=== PATIENT | female | born 1970 | race African-American/Black ===

== ENCOUNTER 2020-07-08 02:43 | Emergency (ER) | payer SELFPAY ==
[~2020-07-08] VITALS: Ht 149.9 cm; Wt 79.4 kg
[2020-07-08] MEDS ORDERED: PROMETH-CODEIN 65 ML PO (03:36)
[2020-07-08] MEDS ORDERED: ZITHROMAX250 MG ORAL (03:36)
--- NOTE | 2020-07-08 03:36 | Emergency Room Report ---
History of Present Illness General Chief Complaint: Upper Respiratory Illness Source: Patient Present Illness HPI 50-year-old -Citizen Of [place] female with past medical history of bronchitis presents with cough. Cough is dry. She has gone to urgent care and twice tested negative for Covid. She became concerned because she has posttussive emesis x2 (nonbloody, non bilious) and rib pain. Denies CP, hemoptysis, shortness of breath, fever, chills, abdominal pain, melena, hematochezia, weakness, dysuria, hematuria or any other symptoms The patient's symptoms were gradual onset, severity was moderate, duration since 14 days. Quality: aching Past medical history: bronchitis Past surgical history: hysterectomy x 4 Smoking: Denies Alcohol use: Denies Drug use: Denies Review of systems: CONST: No fevers or chills, No night sweats PULMONARY: ++dry cough, No shortness of breath CARDIAC: No chest pain, No palpitations GI: No vomiting, No diarrhea , No melena_or_BRBPR : No dysuria, No hematuria, No discharge NEURO: No new_focal_weakness_or_numbness, No confusion, No vision changes 14 point Review of Systems is otherwise negative except per HPI Physical Exam: GENERAL: Awake_alert_ nontoxic, no acute distress Spo2 98% on RA -normal EYES: Extraocular muscles are intact. Conjunctivae clear. Lids without swelling ENT: External nose and ear normal_in_appearance. Oropharynx clear. Head_atraumatic, Moist_oral_mucosa NECK: No JVD. No meningismus. No thyromegaly. Supple. Trachea midline RESP: Normal respiratory effort. Symmetric rise. No stridor. Clear_to_auscultation_No_rales_No_wheezes CARDIAC: Regular rate and regular rhytm. No_significant pedal edema. ABDOMEN: Soft. Nondistended. Nontender_No_rebound_or_guarding. MSK: Normal muscle tone, without rigidity. Extremities without asymmetric deformity or swelling. SKIN: Warm and dry. No visible cyanosis or pallor NEUROLOGIC: Alert, oriented x3. Motor_and_sensation_grossly_intact. No truncal ataxia. Gait_normal Psych: Normal mood and affect, normal judgment and insight - COORDINATION OF CARE Case was discussed with: Patient Any labs and imaging that were ordered were interpreted as part of the medical decision making: Medical Decision Making/Plan: DDx: includes COVID-19 / coronavirus infection, URI, bronchitis, viral syndrome, postnasal drip, versus less likely pneumonia, among others. The patient is nontoxic and well-appearing and has no significant shortness of breath or fever . The patient exhibits no evidence of respiratory distress. Chest x-ray revealed no evidence of obvious consolidation of infiltrate. She is refusing repeat Covid swab here today as she has had 2 previous which she describes as "very painful" There is no clinical evidence to suggest bacterial pneumonia at this time. The patient's presentation appears consistent with bronchitis / viral syndrome, with possible subacute bacterial bronchitis No evidence of ENT emergency, airway patent, tolerating oral liquids and solids. No stridor or difficulty breathing. Tonsils within normal limits, no evidence of swelling, exudate or strep pharyngitis. No indication for empiric antibiotic treatment. Sublingual space soft. Will prescribe codeine cough medicine as she is now having forceful cough causing rib pain. She was instructed not to combine it with alcohol or drive while taking it as it is sedating The patient was instructed to follow up with their physician and instructed to return if worsens, progressively worsening shortness of breath or difficulty breathing, persistent fever, chest pains or discomfort, inability to keep medication or fluids down with or without vomiting, or any other new, worsening or concerning symptoms Based on the patients presenting signs, symptoms, exam, and risk factors (living in an area endemic for a coronavirus outbreak = [employer]), the patient has been screened for coronavirus infection and is suspected of having COVID 19. Patient was nontoxic with benign vital signs. Patient did not meet admission criteria and was stable for outpatient therapy. Patient was instructed to home quarantine for 14 days or until 3 days after their last fever, whichever is longer. Appropriate precautions were given. Strict return precautions given, including but limited to: Patient educated to notify a healthcare professional if they develop further symptoms that include chest pain, palpitations, significant SOB, fever, or other concerning symptoms. Discussed supportive care with rest, hydration, frequent handwashing and Tylenol and Motrin [id number] as needed for pain or fevers. Discussed strict return precautions. Verbal discharge with written instructions were given for COVID- 19. Patient is instructed to follow up with their primary care provider in 1-2 days, or return to the ED for worsening symptoms. Return to ED precautions were given. 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 Patient History Last Menstrual Period: n/a Nursing Documentation-[facility] Past Medical History: No History, Except For Physical Exam Vital Signs Date Time Temp Pulse Resp B/P (MAP) Pulse Ox O2 Delivery O2 Flow Rate FiO2 07/08/20 02:55 98.6 85 135/86 (102) 98 Room Air Sp02 EP Interpretation: reviewed, normal Medical Decision Making Diagnostic Impression: Primary Impression: Cough Additional Impression: Suspected 2019-nCoV infection Chest X-Ray Diagnostic Results Chest X-Ray Diagnostic Results : PA Scribe Text Chest X-Ray: Views: [ 1 ] view(s) Indication: Cough Findings: Normal heart size. Mediastinum normal. No infiltrate. Impression: nad The X-ray(s) were independently viewed and interpreted contemporaneously Electronically signed by Najma law DO Reevaluation Time: 03:34 Last Vital Signs Date Time Temp Pulse Resp B/P (MAP) Pulse Ox O2 Delivery O2 Flow Rate FiO2 07/08/20 03:00 85 Room Air 07/08/20 02:55 98.6 135/86 (102) 98 Status: improved Disposition: HOME, SELF-CARE Admit Decision Time: 03:34 Condition: Stable Scripts Azithromycin* (ZITHROMAX*) 250 Mg Tablet 250 MG ORAL DAILY, #6 TAB 0 Refills Take two tables once daily for 1 day, then one tablet once daily for 4 days. Prov: Najma Tejada D.O. 07/08/20 Promethazine HCl/Codeine (Prometh-Codein 6.25-10 mg/5 ml) 5 Ml Syrup 5 ML PO BID for COUGH for 5 Days, #50 ML Prov: Najma Tejada D.O. 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 Do not take Phenergan with codeine and drive as it is potentially sedating. Do not combine with alcohol. Follow-up with your doctor sooner if your condition requires a more timely clinical reevaluation. Return to the emergency department immediately if you feel that your condition is worsening or if you have any new or concerning symptoms. Review your discharge instructions and take any prescriptions given as instructed. [facility] PROVIDES FREE OR LOW-COST HEALTH SERVICES TO PEOPLE WHO CAN SHOW PROOF THAT THEY LIVE IN [facility]. TO FIND MORE CLINICS PARTNERED WITH [facility] TO PROVIDE SERVICE, PLEASE CALL . Your evaluation suggests that you are suffering from a viral infection producing a viral syndrome. You can sign up for testing with [facility] at the following website as discussed [email or web address] Symptoms of a viral syndrome may include fever, sore throat, headache, body aches and pains, generalized weakness and fatigue, and runny nose. You do not show signs or symptoms suggestive of a serious or life threatening illness. This illness may be caused by a number of different viruses, including Influenza A or B or COVID-19. These viruses are highly contagious and spread rapidly from person to person via coughing and sneezing of the virus or by contaminated surface contact with nasal or other respiratory secretions. These viruses cause a similar combination of signs and symptoms which are typically much more severe than the common cold. Typically they begin with the rapid onset of fever, often high (over 102), body aches, fatigue, headache, and usually upper respiratory tract infections symptoms such as cough, runny nose, and sore throat. The i llness typically lasts 7-10 days, with the fever and feelings of weakness and body aches usually lasting 3-5 days. Your own immune system fights off these infections. Only rarely do secondary bacterial infections occur (such as bacterial pneumonia) and can be serious. At this time your symptoms do not appear serious, however, there are limitations to online visits and if you are not improving you may need to be evaluated by a doctor in person and that doctor may need to do additional tests. INSTRUCTIONS: Illnesses such as yours typically resolve on their own with time however you must remember to stay hydrated and drink 2-3 times your normal fluid intake, as fever and your increased metabolism in fighting the infection uses more water. Fever control is important to help you feel better and to help prevent dehydration. Acetaminophen is an excellent choice for fever control and other symptoms (as long as you are not allergic to the medication). Rest is also important in helping your body fight this infection. Over the counter cough and decongestant medications are safe (as long as you dont have uncontrolled high blood pressure) and may help the cough and congestion slightly. As these viruses are highly contagious, good hand washing habits, and covering your cough and sneeze help prevent spread. Fever can be a sign of a serious infection and it is imperative that you go directly to an Emergency Department for serious symptoms such as weakness, confusion, significant shortness of breath, abdominal pain, or severe headache. Close follow up with a physician is important if you are not improving over the next few days or you experience worsening of your symptoms. Although it is impossible to know at this point if you have COVID-19 (the Price virus), please quarantine yourself and anyone else that is residing with you for the longer of the following time periods: 14 days OR 3 days after the last of your symptoms has resolved CONTACT THE DOCTOR RIGHT AWAY if you develop worsening symptoms such as short ness of breath, chest pain, neck stiffness, confusion or any other new, worsening, or concerning symptoms. For emergencies contact 911 immediately. Najma Tejada D.O. Jul 08, 2020 03:36
[2020-07-08 03:57] VITALS: BP 135/86
--- NOTE | 2020-07-08 14:32 | Diagnostic Imaging Report ---
Indication: Reason For Exam: COUGH Technique: Single AP view of the chest. Comparison: None. Findings: The cardiomediastinal silhouette is within normal limits. There is mild pulmonary vessel congestion. There is no focal consolidation, pneumothorax or pleural effusion. Osseous structures demonstrate no acute abnormality. IMPRESSION: Mild pulmonary vascular congestion without air space consolidation.
== END 2020-07-08 03:58 | disposition home or self-care (01) ==
LOC: EMR 03:20
DX: R05 Cough (principal); Z90.710 Acquired absence of both cervix and uterus; Z88.8 Allergy status to other drugs, medicaments and biological substances
CPT/HCPCS: 71045; 99283